=== PATIENT | male | born 1995 | race Caucasian/White ===

== ENCOUNTER 2016-06-04 17:31 | Emergency (ER) | payer BC ==
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
== END 2016-06-04 18:36 | disposition home or self-care (01) ==
LOC: ER 17:31
DX: S06.0X0A Concussion without loss of consciousness, initial encounter (principal); S60.221A Contusion of right hand, initial encounter; V86.59XA Driver of other special all-terrain or other off-road motor vehicle injured in nontraffic accident, initial encounter
CPT/HCPCS: 70450; 99283; 99284